=== PATIENT | female | born 1990 | race Caucasian/White ===

== ENCOUNTER 2017-12-26 09:18 | Day surgery (SDC) | payer BC ==
[~2017-12-26 09:18] MED LIST: CIPROFLOXACIN 400 MG in D5W 200 ML IVPB; PROPOFOL 200 MG INJ
[2017-12-26] MEDS ORDERED: ROCURONIUM 50 MG INJ (12:07)
[2017-12-26] MEDS ORDERED: LIDOCAINE 2% (SDV) 5 ML INJ (12:07)
[2017-12-26] MEDS ORDERED: FENTAnyl 50 MCG/ML VIAL ×2 (12:08→12:32)
[2017-12-26] MEDS ORDERED: DEXAMETHASONE 4 MG/ML 1 ML INJ (12:08)
[2017-12-26] MEDS ORDERED: ONDANSETRON 4 MG INJ (12:08)
[2017-12-26] MEDS ORDERED: MIDAZOLAM 1 MG/ML 2 ML INJ (12:08)
[2017-12-26] MEDS ORDERED: CIPROFLOXACIN 400MG/D5W 200 ML (12:11)
[2017-12-26] MEDS ORDERED: LABETALOL HCL 20MG INJ IV (12:30)
[2017-12-26] MEDS ORDERED: FENTAnyl 50 MCG/ML VIAL IV ×2 (12:30)
[2017-12-26] MEDS ORDERED: MEPERIDINE 25 MG INJ IV (12:30)
[2017-12-26] MEDS ORDERED: ALBUTEROL 0.083% (NEB) 2.5 MG/3 ML AMP HHN (12:30)
[2017-12-26] MEDS ORDERED: DIPHENHYDRAMINE 50 MG INJ IV (12:30)
[2017-12-26] MEDS ORDERED: ONDANSETRON 4 MG INJ IV (12:30)
[2017-12-26] MEDS ORDERED: morphine (1 MG/ML) 10ML SYRINGE IV ×2 (12:30)
[2017-12-26] MEDS ORDERED: HYDROmorphONE 1 MG/5 ML IV SYRINGE IV (12:30)
[2017-12-26] MEDS ORDERED: OXYCODONE/ACETAMINOPHEN (5/325) TAB PO ×2 (12:30)
[2017-12-26] MEDS ORDERED: SUGAMMADEX SODIUM 200 MG/2 ML VIAL IV (12:33)
[2017-12-26] MEDS ORDERED: DIPHENHYDRAMINE 50 MG INJ (12:38)
[2017-12-26] MEDS: HYDROmorphONE 1 MG/5 ML IV SYRINGE IV ×3 (13:20→14:09)
[2017-12-26 14:00] LABS: INR 0.97
== END 2017-12-26 14:40 | disposition home or self-care (01) ==
LOC: SDS 09:18
DX: N20.1 Calculus of ureter (principal); N13.5 Crossing vessel and stricture of ureter without hydronephrosis; I10 Essential (primary) hypertension; Z85.3 Personal history of malignant neoplasm of breast; N12 Tubulo-interstitial nephritis, not specified as acute or chronic
CPT/HCPCS: 52356; 74430; 85610; 85730